=== PATIENT | male | born 1980 | race Caucasian/White ===

== ENCOUNTER 2024-10-21 11:10 | Emergency (ER) | payer OTHER, SELFPAY ==
--- NOTE | ~2024-10-21 | CT_ITS ---
EXAMINATION: CT CHEST WITHOUT CONTRAST CLINICAL INFORMATION: Displaced rib fracture DLP: 573 mGY*cm COMPARISON: None available. TECHNIQUE: Multidetector volumetric CT imaging of the chest was done. Axial MIP volume rendering provided. Sagittal and coronal reformatted images were obtained. This CT examination was performed using dose optimization techniques as appropriate, variously including the following: *Automated exposure control *Adjustment of mA and/or kV according to patient size (this includes techniques or standardized protocols for targeted exams where dose is matched to indication/reason for exam; i.e. extremities or head) *Use of iterative reconstruction technique FINDINGS: LUNGS: There is opacity involving the posterior base of the left lower lobe. Lungs are clear otherwise MEDIASTINUM: The mediastinum is normal. CORONARY ARTERY CALCIFICATION: None visualized on this study. PLEURA: Small layering pleural effusions present on the left AXILLA: No lymphadenopathy. UPPER ABDOMEN: Diffuse fatty changes are present throughout the liver with sparing along the gallbladder fossa fissure for ligamentum teres. There is an epigastric herniation at any abnormal soft tissue. The hernia sac measures 2.5 x 2.9 cm.] Passes through a defect in the linea alba. OSSEOUS STRUCTURES: Unremarkable. CT/CT chest wo IV con IMPRESSION: Left basilar atelectasis versus pneumonia with small layering pleural effusion. Fatty liver. 3cm Epigastric herniation of adipose tissue through the linea alba. Fleischner guidelines were followed. Electronically signed by: Stephen Gonsalez MD 10/21/2024 12:48 PM EDT
[2024-10-21 11:15] VITALS: BP 163/79; PULSE 79; RESP 16; TEMP 36.5; O2SAT 95; BMI 35.9
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
[2024-10-21 12:42] VITALS: BP 136/80; PULSE 68; RESP 16; TEMP 36.6; O2SAT 97
--- NOTE | 2024-10-21 13:30 | PC.NURSE ---
Incentive spirometer teaching performed w/ pt. Pt able to verbalize understand perform return demonstration on use w/ IS of 1500.
[2024-10-21 14:20] VITALS: BP 136/80; PULSE 68; RESP 16; TEMP 36.6; O2SAT 97
== END 2024-10-21 14:29 | disposition home or self-care (01) ==
PROVIDERS: Emergency Provider Emergency Medicine
DX: S22.32XA Fracture of one rib, left side, initial encounter for closed fracture (principal); K43.9 Ventral hernia without obstruction or gangrene; R07.81 Pleurodynia; V29.31XA Electric (assisted) bicycle (driver) (passenger) injured in unspecified nontraffic accident, initial encounter; Y93.9 Activity, unspecified; Y92.410 Unspecified street and highway as the place of occurrence of the external cause; Y99.8 Other external cause status
CPT/HCPCS: 71250; 94010; 99284

== ENCOUNTER → 2024-10-21 11:22 | Outpatient (BNV) | payer OTHER, SELFPAY | PROVIDERS: Emergency Provider Emergency Medicine; Visit Provider Radiology Diagnostic Radiology | DX: K76.0 Fatty (change of) liver, not elsewhere classified (principal); K43.9 Ventral hernia without obstruction or gangrene | CPT/HCPCS: 71250 ==